=== PATIENT | female | born 1940 | race Caucasian/White ===

== ENCOUNTER 2016-07-16 07:10 | Emergency (ER) | payer OTHER ==
[2016-07-16 07:32] VITALS: O2SAT 98
--- NOTE | 2016-07-16 07:34 | ED.PDOC ---
History of Present Illness - General Time Seen by Provider: 07/16/16 07:23 Information Source: prison records - History of Present Illness Initial Comments: THIS PATIENT [facility]ES [facility]. EVIDENTLY IT WAS NOTED THAT THE PATIENT HAD WHAT APPEARS TO BE COFFEE GROUND CONTENT ON HER MOUTH. ADDED INFORMATION IS THAT THE PATIENT WAS GIVEN CHOCOLATE ICE CREAM LAST NIGHT. SHE IS NON VERBAL AND HAS DEMENTIA AND PARKINSON'S DISEASE AND IS CONSTANTLY MOANING. THE [facility] STATES THAT EVERY MORNING SHE HAD A COUGHING SPELL AND TODAY SHE BROUGHT UP THIS DARK SPUTUM. Review of Systems - Review of Systems Constitutional: States: no symptoms reported Respiratory: States: cough Cardiology: States: no symptoms reported Gastrointestinal/Abdominal: States: vomiting Genitourinary: States: no symptoms reported Musculoskeletal: States: no symptoms reported Skin: States: no symptoms reported Neurological: States: no symptoms reported Endocrine: States: no symptoms reported Hematologic/Lymphatic: States: no symptoms reported Past Medical History (General) - Patient Medical History Hx Dementia: Yes Hx Cardiac Disorders: Yes - CAD, HAS [id number]. SAMUELSON Hx Thyroid Disease: Yes Hx of HIV: No Hx Other - free text: THE PATIENT HAS PARKINSON'S DISEASE. HAS HAD SURGERY FOR GERD. Surgical History: cholecystectomy, other - Activities of Daily Living Skilled Nursing/Assisted Living (if applicable):: [facility] - Triage Comment ED Triage Comment: Vomiting blood per prison staff. Recent history of pneumonia. Family Medical History - Family History Mother Family History: Unknown Physical Exam - Physical Exam General Appearance: Alert, Anxious, Restless, Unkempt Eyes, Ears, Nose, Throat Exam: PERRL/EOMI, normal ENT inspection Neck: non-tender Respiratory: lungs clear, normal breath sounds, no respiratory distress Cardiovascular/Chest: normal peripheral pulses, no edema, no gallop, no murmur Peripheral Pulses: No deficit Gastrointestinal/Abdominal: normal bowel sounds, non tender, soft, no organomegaly, no pulsatile mass, other - RECTAL EXAM: POOR RECTAL TONE, STOOL IS DK BROWN, NO MASSES NOTED, GUIAC SENT TO THE LAB AND POSITIVE. Extremity: normal range of motion Neurologic: no motor/sensory deficits, other - THE PATIENT IS NON-VERBAL Skin Exam: normal color, warm/dry Lymphatic: no adenopathy - ORAL MUCOSA WITH WHAT APPEARS TO BE COFFEE GROUND EMESIS Progress - Progress Progress: 07/16/16 07:48 GASTRO-OCCULT TEST IS POSITIVE. WILL OBTAIN CBC, COAGS, CMP AND A CXR. 07/16/16 08:51 THE LAB IS REPORTED AND THE HB IS 7.1, PLATELETS ARE 719,000. 07/16/16 09:05 THE CXR REVEALS A LLL CONSOLIDATION AND HAS BEEN UNDER TREATMENT. SHE IS ON AMOXACILLIN. I HAVE DISCUSSED THE CASE WITH SAMANTHA GRAVES FOR ADMISSION BUT HE DESIRES TO SEND THE PATIENT TO [facility] FOR ADMISSION. 07/16/16 09:09 FURTHER INFORMATION IS OBTAINED FROM THE [place]. SHE WAS ADMITTED ON MAY/2016. THE HB WAS 15, ON JUNE IT DROPPED TO 11.7. 07/16/16 09:[address] COX AT [facility] AND HAS ACCEPTED THE PATIENT. I HAVE ALSO CALLED DR. SOUTH AND HE WILL CONSULT ON THE PATIENT. ATTEMPTED TO DO DIRECT ADMIT WITH DR. DUVAL AND SHE FELT MORE COMFORTABLE FOR THE PATIENT TO GO THE THE ED. THE PATIENT WILL BE TYPED AND CROSSED WITH TWO UNITS OF PRBC AND START TRANSFUSION EN ROUTE. Departure - Departure Clinical Impression: Peptic ulcer, Upper gastrointestinal bleeding ICD-10 Supporting Text: UPPER GI BLEEDING Disposition: Transfer to Hospital Condition: Serious Departure Forms: ED Discharge - Pt. Copy Activity: no exercise Referrals: DAXA NARANJO [Primary Care Provider] - 1-2 Weeks Home Medications: Ambulatory Orders ALPRAZolam [Xanax] 0.25 mg PO PRN 07/16/16 Acetaminophen [Eq Acetaminophen] 500 mg PO PRN 07/16/16 Albuterol Sulfate Q6HR 07/16/16 Amoxicillin [Amoxil] TID 07/16/16 Aspirin 325 mg 07/16/16 Atorvastatin Calcium [Lipitor] 40 mg PO 07/16/16 Carbidopa/Levodopa 25/100 [Sinemet 25/100] 1 ea PO 07/16/16 Carvedilol 3.125 mg PO 07/16/16 Ceftriaxone Sodium 1 gm IJ 07/16/16 Celecoxib [Celebrex] 200 mg PO 07/16/16 Clopidogrel Bisulfate [Plavix] 75 mg PO 07/16/16 Dextromethorphan-Guaifenesin [Siltussin Dm Lombardo] 1 liq PO 07/16/16 Digoxin 125 mcg PO 07/16/16 Estropipate 3 mg PO 07/16/16 Fluoxetine HCl [Prozac] DAILY 07/16/16 Levothyroxine Sodium PO 07/16/16 Losartan Potassium 25 mg PO 07/16/16 Nitroglycerin 0.4 mg SL 07/16/16 Promethazine HCl 25 mg PO 07/16/16 Critical Care Note - Critical Care Note Comments: CRITICAL EVENT: ANEMIA, COFFEE GROUND EMESIS CRITICAL FINDINGS: ANEMIA WITH HB OF 7.1, TACHYCARDIA OF 122 CRITICAL INTERVENTIONS: IV CRYSTALLOIDS, TRANSFUSION OF BLOOD, GI CONSULTATION TRANSFER TO HIGHER LEVEL OF CARE CRITICAL TIME: 35 MINUTES SYSTEMS AT RISK, CARDIOVASCULAR, GASTROINTESTINAL
--- NOTE | 2016-07-16 08:11 | RAD ---
EXAM DESCRIPTION: Chest,1 View CLINICAL HISTORY: HEMOPTHYSIS COMPARISON: None available FINDINGS: The heart is at the upper limits of normal size. Mediastinal contours are otherwise unremarkable. Airspace consolidation is noted in the left lung base posterior to the heart with a probable small left-sided pleural effusion. The right lung and right pleural space are unremarkable. Is a questional small nodule in the mid right lung. There is no pneumothorax or acute fracture. IMPRESSION: Left basilar consolidation with a small left-sided effusion. Differential considerations include pneumonia or atelectasis. Considering a possible small noncalcified nodule in the mid right lung, chest CT is recommended for further evaluation. At a minimum, follow-up chest radiograph after treatment is recommended to document complete resolution. Electronically signed by: Abel Garcia MD 07/16/2016 8:12 AM CDT Workstation: [id number]
[2016-07-16] MEDS ORDERED: SODIUM CHLORIDE 0.9% 1000ML 1,000 ML IVS PRN (09:11)
[2016-07-16] MEDS ORDERED: ACETAMINOPHEN 325 MG TAB PO ONE (09:54)
[2016-07-16] MEDS ORDERED: diphenhydrAMINE HCL 50 MG/ML VIAL IV ONE (09:54)
[2016-07-16] MEDS ORDERED: SODIUM CHLORIDE 0.9% 500ML 500 ML IVS SCH (10:00)
[2016-07-16 10:53] VITALS: TEMP 97.7
[2016-07-16 11:17] VITALS: BP 120/71
== END 2016-07-16 11:18 | disposition short-term general hospital (02) ==
LOC: ER 07:10
DX: K27.4 Chronic or unspecified peptic ulcer, site unspecified, with hemorrhage (principal); G31.83 Neurocognitive disorder with Lewy bodies; F02.80 Dementia in other diseases classified elsewhere, unspecified severity, without behavioral disturbance, psychotic disturbance, mood disturbance, and anxiety; E07.9 Disorder of thyroid, unspecified; I25.10 Atherosclerotic heart disease of native coronary artery without angina pectoris; Z98.61 Coronary angioplasty status; Z79.82 Long term (current) use of aspirin; Z79.02 Long term (current) use of antithrombotics/antiplatelets; Z79.899 Other long term (current) drug therapy
CPT/HCPCS: 36415; 71010; 80053; 82270; 82271; 83986; 85025; 85610; 85730; 86850; 86900; 86901; 86922; J1200; J7030; J7040; P9016